=== PATIENT | female | born 1960 | race Caucasian/White ===

== ENCOUNTER → 2016-08-27 | Outpatient (CLI) | payer OTHER, MEDICAID ==
--- NOTE | 2016-08-27 14:40 | REPMRS ---
Patient History The patient states she had a clinical breast exam in 08/2016. Family history of prostate cancer in maternal grandfather at age 50 or over, colorectal cancer in mother at age 50 or over, breast cancer in maternal aunt, and colorectal cancer in maternal grandmother at age 50 or over. Digital Woman Screen Mammo: August 27, 2016 - Exam #: [id number] Bilateral CC and MLO view(s) were taken. Technologist: Tiara Conroy, Technologist Prior study comparison: August 06, 2015, digital woman screen mammo performed at [facility]. April 27, 2014, digital woman screen mammo performed at [facility]. FINDINGS: There are scattered fibroglandular densities. There has been no change in the appearance of the mammogram from the prior studies. There is a mild amount of residual fibroglandular tissue which is fairly symmetric. There is no interval development of dominant mass, architectural distortion, or clustered microcalcification suggestive of malignancy. ASSESSMENT: BI-RADS/ACR category 1 mammogram. Negative. Recommendation Routine screening mammogram in 1 year (for women over age 40). This mammogram was interpreted with the aid of an FDA-approved computer-aided dectection system. Electronically Signed By: Evaristo Liu MD 08/27/16 [id number]
== END ==
LOC: M WHC 13:05
PROVIDERS: ATTEND Nurse Practitioner Family
DX: Z01.419 Encounter for gynecological examination (general) (routine) without abnormal findings (principal); Z12.31 Encounter for screening mammogram for malignant neoplasm of breast; Z12.12 Encounter for screening for malignant neoplasm of rectum
CPT/HCPCS: 82270; G0101; G0123; G0202

== ENCOUNTER → 2016-09-24 | Outpatient (CLI) | payer OTHER, MEDICAID ==
[~2016-09-24] MED LIST: CONRAY-43 43% 50ML VIAL (Q9960) As Ordered ONE
--- NOTE | 2016-09-24 13:35 | REP ---
MR arthrogram right hip: History: Pain in the right hip. Question labral tear. Comparison studies: The prior MRI study of the left hip from October 05, 2014 showed a para labral cyst on the right. No comparison right hip radiographs. Technique: Precontrast imaging includes coronal T1 and T2-weighted scans of both hips. Postcontrast small field of view high resolution axial, coronal and sagittal images are acquired in T1 and T2-weighted scans with fat saturation. MR arthrographic findings: Pre injection MR imaging shows the cortical and medullary bone signal intensity normal in the proximal femurs bilaterally. There is no evidence of avascular necrosis. There is a tiny subcortical cyst in the femoral head on the right. A small labral cyst is also seen on the right. Head/neck junction morphology is normal. There does appear to be osteoarthritic spurring in both femoral heads. The visualized bony pelvic ring appears intact. No uterine or ovarian lesion is seen. There is minimal spurring at the symphysis pubis. Post injection imaging demonstrates good filling and enhancement of the right hip articulation. There is moderate osteoarthritis with femoral head and acetabular spurring. There is a large area of articular cartilage loss on the femoral head and acetabulum posteriorly. This measures 10 mm in greatest medial to lateral span and appears to be full-thickness. Higher resolution coronal images postinjection show evidence of an acetabular labral tear with contrast filling the area of the labral cyst seen on T2-weighted scans. Ligamentum teres is thin but appears intact. No loose body is seen. No other abnormality. Impression: Osteoarthritic changes. There is a fairly large articular cartilage lesion posteriorly on the acetabulum and femoral head. Femoroacetabular spurring is seen. A degenerative nondisplaced tear of the superior labral cartilage is seen. No loose body. Signed by Santosh Bautista MD 09/24/2016 05:37 P
--- NOTE | 2016-09-24 16:35 | REP ---
RIGHT HIP ARTHROGRAM: The procedure was performed under the direct supervision of Dr. Bautista. The benefits and risks including but not limited to pain, infection, bleeding, and anaphylaxis were explained to the patient and informed consent was obtained. The right femoral neck was localized using fluoroscopic guidance. The skin was prepped and draped in a sterile fashion. 1% Lidocaine was used a local anesthetic. Using fluoroscopic guidance a 22-gauge spinal needle was inserted and advanced to the femoral neck. 0.5 mL of Conray-43 was injected to verify placement. 11 mL of a solution containing 20 mL of sterile saline and 0.15 mL of ProHance was injected. The needle was removed and the patient was taken to MRI for postprocedural imaging. The patient tolerated the procedure well and there were no immediate complications. 2 second of fluoroscopic time was utilized for this procedure. Reviewed by ALVERTO Dickerson 09/25/2016 02:09 PEdited and Signed by Santosh Bautista MD 09/25/2016 05:02 P
== END | disposition home or self-care (01) ==
LOC: M RADPRO 07:01
PROVIDERS: ATTEND Physical Medicine & Rehabilitation
DX: M24.851 Other specific joint derangements of right hip, not elsewhere classified (principal); M16.11 Unilateral primary osteoarthritis, right hip
CPT/HCPCS: 20610; 73525; 73723; A9576; Q9960

== ENCOUNTER 2017-04-02 07:37 | Day surgery (SDC) | payer OTHER, MEDICAID ==
[~2017-04-02] VITALS: Ht 170.2 cm; Wt 122.2 kg
[~2017-04-02 07:37] MED LIST changes: +ACET50TAOT PO; +ADV250INH INH; +ALBU17IN INH; +ASPI81TA18 PO; +BACL10TA2 PO; +CLOT1CRE EXT; -CONRAY-43 43% 50ML VIAL (Q9960) As Ordered ONE; +DETR4CAP PO; +FAMO40TA3 PO; +FLUTISP; +IMOD2CAP PO; +LEVO200T4 PO; +LISI-538 PO; +LORA10TA2 PO; +MELO7.5T7 PO; +METF10004 PO; +MULT1TAB10 PO; +PRAM0.123 PO; +SIMV20TA2 PO; +TOPI200T7 PO; +TRAM50TA2 PO
[2017-04-02] MEDS ORDERED: LIDOCAINE 1% SDV 5 ML VIAL SQ ONE (07:45)
[2017-04-02] MEDS ORDERED: PROPOFOL 200 MG/20 ML VIAL As Ordered ONE (08:00)
[2017-04-02] MEDS ORDERED: ONDANSETRON 4MG/2ML VIAL (J2405) As Ordered ONE (08:00)
[2017-04-02] MEDS ORDERED: LR 1,000 ML IV ONE (08:00)
[2017-04-02] MEDS ORDERED: LIDOCAINE 2% INJ 100 MG/5 ML SDV (FOR ANES.) As Ordered ONE (08:00)
[2017-04-02] MEDS ORDERED: MIDAZOLAM INJ 2 MG/2 ML VIAL (J2250) As Ordered ONE (08:01)
[2017-04-02] MEDS ORDERED: fentaNYL 100 MCG/2 ML INJECTION (J3010) As Ordered ONE (08:01)
[2017-04-02 08:05] LABS: MEAN CORPUSCULAR HEMOGLOBIN 31.2 pg (27.0-33.0); MEAN CORPUSCULAR HGB CONC 34.5 g/dl (32.0-36.5); MEAN CORPUSCULAR VOLUME 90.4 fl (80.0-96.0); RED CELL DISTRIBUTION WIDTH 13.1 % (11.5-14.5); WHITE BLOOD COUNT 7.9 K/mm3 (4.0-10.0)
[2017-04-02] MEDS ORDERED: KETOROLAC 60 MG/2 ML VIAL (J1885) As Ordered ONE (08:28)
[2017-04-02 10:20] VITALS: BP 147/82
--- NOTE | 2017-04-02 12:27 | RO ---
DATE OF PROCEDURE: 04/02/2017 PREPROCEDURE DIAGNOSIS: Postmenopausal bleeding. POSTPROCEDURE DIAGNOSIS: Postmenopausal bleeding. PROCEDURE: Hysteroscopy, dilation and curettage. SURGEON: Ingrid Redding MD CULINARY ARTS TEACHER: THOMAS Mia3 ANESTHESIA: General anesthesia via laryngeal mask airway. ESTIMATED BLOOD LOSS: 5 mL. INTRAVENOUS FLUIDS: 500 mL. SPECIMENS: Endometrial curettings. OPERATIVE FINDINGS: Patient with uterus sounded to 7 cm. Bilateral ostia were visualized with atrophic appearing uterus. Minimum endometrial curettings obtained. DESCRIPTION OF OPERATION: After informed consent was obtained and written consent was reviewed, the patient was brought to the operating room where laryngeal mask airway was obtained. She was then placed in lithotomy position. She was prepped and draped in a normal sterile fashion. A time-out in the operating room was then performed identifying the patient, procedure to be performed, as well as drug allergies. A [place] speculum was then placed revealing the cervix. The anterior lip of the cervix was grasped with a single tooth tenaculum. The cervix was then sequentially dilated using Hanks dilators. The uterus was then sounded to 7.5 cm. Hysteroscope was then advanced through the cervical os revealing endometrium which appeared to be atrophic. Bilateral ostia was visualized. The hysteroscope was then removed. Sharp curette was then advanced through the cervical os to the level of the fundus and the uterus was curetted in 360 degree fashion with minimal amounts of tissue obtained. Tissue was then collected and sent to pathology for further evaluation. Single tooth tenaculum was then removed. Tenaculum site was noted to be hemostatic. Speculum was removed. Patient was then taken out of lithotomy position and was awaked from general anesthesia and taken to recovery in stable condition. Counts were correct.
--- NOTE | 2017-04-03 08:10 | ECGEPIP ---
Stationary ECG Study [facility] Test Date: 2017-04-02 Pat Name: SANTANA GRAHAM Department: Room: - Gender: F Trouble Dispatcher: : [id number] Requested By: MATEO POOL Order Number: [id number] Reading MD: Edu Narayan Measurements Intervals [place] Rate: 76 P: 53 NV: 187 QRS: 19 QRSD: 102 T: 22 QT: 381 QTc: 428 Interpretive Statements Normal sinus rhythm Normal EKG No significant change when compared to prior tracing of 06/26/2011 Electronically Signed On 04-03-2017 8:10:23 EDT by Edu Narayan
== END 2017-04-02 10:55 | disposition home or self-care (01) ==
LOC: M SDC 07:37 → EEVIPCON 17:30
PROVIDERS: ATTEND Obstetrics & Gynecology
DX: N95.0 Postmenopausal bleeding (principal); I10 Essential (primary) hypertension; E11.9 Type 2 diabetes mellitus without complications; E03.9 Hypothyroidism, unspecified; K21.9 Gastro-esophageal reflux disease without esophagitis; Z86.73 Personal history of transient ischemic attack (TIA), and cerebral infarction without residual deficits; Z88.0 Allergy status to penicillin; K58.8 Other irritable bowel syndrome; G25.81 Restless legs syndrome; Z87.891 Personal history of nicotine dependence; Z79.899 Other long term (current) drug therapy
CPT/HCPCS: 36415; 58558; 85027; 86850; 86900; 86901; 88305; 93005; J1885; J2250; J2405

== ENCOUNTER → 2018-03-08 | Outpatient (CLI) | payer OTHER, MEDICAID | LOC: M WHC 14:36 | DX: Z12.31 Encounter for screening mammogram for malignant neoplasm of breast (principal); Z78.0 Asymptomatic menopausal state; Z80.0 Family history of malignant neoplasm of digestive organs; Z80.42 Family history of malignant neoplasm of prostate; Z12.4 Encounter for screening for malignant neoplasm of cervix; Z12.12 Encounter for screening for malignant neoplasm of rectum | CPT/HCPCS: 77067; G0123 ==

== ENCOUNTER → 2018-03-08 | Outpatient (REF) | payer OTHER, MEDICAID, MEDICARE | LOC: M SFHCWAGY 15:27 | DX: Z12.4 Encounter for screening for malignant neoplasm of cervix (principal) | CPT/HCPCS: G0123 ==

== ENCOUNTER → 2019-03-09 | Outpatient (REF) | payer MEDICARE, MEDICAID ==
[~2019-03-09] MED LIST changes: +ACET500T15 PO; -ACET50TAOT PO; -ASPI81TA18 PO; +ASPI81TA52 PO; +LORA-243 PO; -LORA10TA2 PO; -PRAM0.123 PO; +PRAM0.126 PO
== END ==
LOC: M SFHCWAGY 15:10
PROVIDERS: ATTEND Nurse Practitioner Family
DX: Z12.4 Encounter for screening for malignant neoplasm of cervix (principal); R87.610 Atypical squamous cells of undetermined significance on cytologic smear of cervix (ASC-US)
CPT/HCPCS: 87624; G0123

== ENCOUNTER → 2019-03-09 | Outpatient (CLI) | payer MEDICARE, MEDICAID ==
--- NOTE | 2019-03-09 17:09 | REPMRS ---
Patient History The patient states she had a clinical breast exam in 02/2019. Family history of colorectal cancer at age 50 or over in mother, colorectal cancer at age 50 or over in maternal grandmother, prostate cancer at age 50 or over in maternal grandfather, breast cancer in maternal aunt. No Hormone Replacement Therapy Digital Woman Screen Mammo: March 09, 2019 - Exam #: [id number] Bilateral CC and MLO view(s) were taken. Technologist: Tiara Conroy, Technologist Prior study comparison: March 08, 2018, bilateral digital woman screen mammo performed at [facility]. August 27, 2016, digital woman screen mammo performed at [facility] [place]. August 06, 2015, digital woman screen mammo performed at [facility]. FINDINGS: There are scattered fibroglandular densities. There has been no change in the appearance of the mammogram from the prior studies. There is a mild amount of scattered fibroglandular density which is fairly symmetric. There is no interval development of dominant mass, architectural distortion, or grouped microcalcification suggestive of malignancy. 3 D Tomography imagwes show no additional abnormality. Assessment: BI-RADS/ACR category 1 mammogram. Negative Mammogram. Recommendation Routine screening mammogram of both breasts in 1 year (for women over age 40). This patient's Lifetime Breast Cancer Risk is estimated at 11.6 %. This mammogram was interpreted with the aid of an FDA-approved computer-aided dectection system. Electronically Signed By: Joaquin Bautista MD 03/09/19 1413
== END ==
LOC: M WHC 14:25
PROVIDERS: ATTEND Nurse Practitioner Family
DX: Z01.419 Encounter for gynecological examination (general) (routine) without abnormal findings (principal); Z12.31 Encounter for screening mammogram for malignant neoplasm of breast; Z80.0 Family history of malignant neoplasm of digestive organs; Z80.42 Family history of malignant neoplasm of prostate
CPT/HCPCS: 77063; 77067; 87624; G0101; G0123

== ENCOUNTER → 2020-05-07 | Outpatient (REF) | payer MEDICARE, MEDICAID ==
[~2020-05-07] MED LIST changes: -CLOT1CRE EXT; +CLOT1CRE51 EXT; -SIMV20TA2 PO; +SIMV20TA22 PO
== END ==
LOC: M SFHCWAGY 10:31
PROVIDERS: ATTEND Nurse Practitioner Family
DX: Z12.4 Encounter for screening for malignant neoplasm of cervix (principal)
CPT/HCPCS: 87624; G0123

== ENCOUNTER → 2020-05-07 | Outpatient (CLI) | payer MEDICARE, MEDICAID ==
--- NOTE | 2020-05-07 16:57 | REPMRS ---
Patient History The patient states she had a clinical breast exam in April 2020. Family history of colorectal cancer at age 50 or over in mother, colorectal cancer at age 50 or over in maternal grandmother, prostate cancer at age 50 or over in maternal grandfather, breast cancer in maternal aunt. No Hormone Replacement Therapy 3D TOMOSYNTHESIS WAS PERFORMED. The [facility] lifetime risk for breast cancer is 11.3%. [place] breast density b. Digital Woman Screen Mammo: May 07, 2020 - Exam #: [id number] Bilateral CC and MLO view(s) were taken. Technologist: Ruthann Lopez, Technologist Prior study comparison: March 09, 2019, bilateral digital woman screen mammo performed at [facility]. March 08, 2018, bilateral digital woman screen mammo performed at [facility]. FINDINGS: There are scattered fibroglandular densities. There has been no change in the appearance of the mammogram from the prior studies. There is a mild amount of residual fibroglandular tissue which is fairly symmetric. There is no interval development of dominant mass, architectural distortion, or clustered microcalcification suggestive of malignancy. Assessment: BI-RADS/ACR category 1 mammogram. Negative Mammogram. Recommendation Routine screening mammogram in 1 year (for women over age 40). This mammogram was interpreted with the aid of an FDA-approved computer-aided dectection system. Electronically Signed By: Evaristo Liu MD 05/07/20 [id number]
== END ==
LOC: M WHC 15:06
PROVIDERS: ATTEND Nurse Practitioner Family
DX: Z12.31 Encounter for screening mammogram for malignant neoplasm of breast (principal); Z80.0 Family history of malignant neoplasm of digestive organs
CPT/HCPCS: 77063; 77067; G0463